=== PATIENT | female | born 1985 | race Caucasian/White ===

== ENCOUNTER 2024-03-03 05:41 | Day surgery (SDC) | payer OTHER ==
[2024-03-01 14:30] VITALS: BMI 25.8
[2024-03-03] MEDS ORDERED: Dexamethasone 4 mg/ml Vial ONE (06:09)
[2024-03-03] MEDS ORDERED: Ondansetron PF 4 MG/2 ML Vial ONE (06:09)
[2024-03-03] MEDS ORDERED: Dexmedetomidine 200 MCG/2 ML VIAL ONE (06:09)
[2024-03-03] MEDS ORDERED: Lidocaine 1% PF 5 ML VIAL ONE (06:09)
[2024-03-03] MEDS ORDERED: Lidocaine 2% PF 5 ML VIAL ONE (06:13)
[2024-03-03] MEDS ORDERED: ePHEDrine Sulfate 50 MG/10 ML VIAL ONE (06:14)
[2024-03-03] MEDS ORDERED: PHENYLEPHRINE-NS 100 MCG/ML 10 ML SYRINGE ONE (06:14)
[2024-03-03] MEDS ORDERED: PROPOFOL 20 ML ONE (06:16)
[2024-03-03] MEDS ORDERED: Phenylephrine 10 MG/ML VIAL ONE (06:17)
[2024-03-03] MEDS ORDERED: fentaNYL 50 mcg/mL 1 mL Vial ONE ×2 (06:22→08:21)
[2024-03-03] MEDS ORDERED: Clindamycin/D5W 900 mg/50 ml Premix Bag ONE (06:51)
[2024-03-03] MEDS ORDERED: Ketorolac Tromethamine 30 MG (1 mL) VIAL ONE (07:28)
== END 2024-03-03 09:30 | disposition home or self-care (01) ==
LOC: CSHSDC 05:41
PROVIDERS: ATTEND Obstetrics & Gynecology
PROC: 0U5B8ZZ Destruction of Endometrium, Via Natural or Artificial Opening Endoscopic (ICD-10-PCS; principal; 2024-03-03)
DX: N72 Inflammatory disease of cervix uteri (principal); Z98.51 Tubal ligation status; Z87.59 Personal history of other complications of pregnancy, childbirth and the puerperium; Z98.890 Other specified postprocedural states; Z88.0 Allergy status to penicillin; Z88.1 Allergy status to other antibiotic agents; Z88.8 Allergy status to other drugs, medicaments and biological substances
CPT/HCPCS: 80048; 84703; 85027; 88305; J1100; J1885; J2371; J2405; J2704; J3010; J3490